=== PATIENT | male | born 1970 | race African-American/Black ===

== ENCOUNTER 2022-06-18 16:17 | Inpatient (IN) | payer OTHER ==
[2022-06-18] MEDS: MELATONIN 5 MG TABLETS PO SCH (11:35)
[2022-06-18] MEDS: THIAMINE HCL 100 MG TABLET (FP) PO SCH (11:35)
[2022-06-18 18:58] VITALS: BMI 25.0
[2022-06-18] MEDS ORDERED: MAG HYDROX/AL HYDROX/SIMETH 30 ML UNIT-DOSE CUP PO PRN (19:23)
[2022-06-18] MEDS ORDERED: MAGNESIUM HYDROX 2400MG/30ML ORAL SUSPENSION 30 ML CUP PO PRN (19:23)
[2022-06-18] MEDS ORDERED: LOPERAMIDE HCL 2 MG CAPSULE PO PRN (19:23)
[2022-06-18] MEDS ORDERED: BISMUTH SUBSALICYLATE 524 MG/30 ML PO PRN (19:23)
[2022-06-18] MEDS ORDERED: ONDANSETRON *ODT* 4 MG TABLET SL PRN (19:23)
[2022-06-18] MEDS ORDERED: NALOXONE HCL (KLOXXADO) 8 MG SPRAY NS PRN (19:23)
[2022-06-18] MEDS ORDERED: DICYCLOMINE HCL 10 MG CAPSULE PO PRN (19:23)
[2022-06-18] MEDS ORDERED: POLYETHYLENE GLYCOL (HEALTHYLAX) 3350 17 GM PACKET PO PRN (19:23)
[2022-06-18] MEDS ORDERED: BENZOCAINE/MENTHOL (CHLORASEPTIC ) LOZENGE MM PRN (19:23)
[2022-06-18] MEDS ORDERED: ACETAMINOPHEN 325 MG TABLET (FP) PO PRN ×2 (19:23)
[2022-06-18] MEDS ORDERED: IBUPROFEN 600 MG TABLET (FP) PO PRN (19:23)
[2022-06-18] MEDS ORDERED: IBUPROFEN 400 MG TABLET (FP) PO PRN (19:23)
[2022-06-18] MEDS ORDERED: hydrOXYzine PAMOATE 25 MG CAPSULE (FP) PO PRN (19:23)
[2022-06-19] MEDS: PRENATAL VITAMINS W/ FOLIC ACID TABLET (FP) PO SCH (11:47)
[2022-06-19 12:22] LABS: HEMATOCRIT 37.3 % (35.4-49); MCHC 32.3 g/dl (32.0-35.9); MEAN CELL VOLUME 89.9 fl (80-96); MEAN PLT VOLUME 10.5 fl (7.5-11.1); PLATELET COUNT 204 10^3/uL (134-434); RBC 4.14 M/mm3 (4.00-5.60); RDW 16.5 % (11.9-15.9)
[2022-06-19 12:41] LABS: CALCIUM 8.3 mg/dL (8.5-10.1)
[2022-06-19 12:42] LABS: ALBUMIN 2.7 g/dl (3.4-5.0)
[2022-06-19] MEDS ORDERED: cloNIDine HCL 0.1 MG TABLET PO ONE ×2 (12:42→21:24)
[2022-06-19 12:45] LABS: BILIRUBIN,TOTAL 0.5 mg/dL (0.2-1); TOT PROT 5.8 g/dl (6.4-8.2)
[2022-06-19 12:47] LABS: CREATININE 0.6 mg/dL (0.55-1.3)
[2022-06-19] MEDS ORDERED: TRIMETHOBENZAMIDE HCL 200MG/2ML INJ IM ONE (15:21)
[2022-06-19] MEDS: METHOCARBAMOL 500 MG TABLET PO PRN (18:06)
[2022-06-19] MEDS: cloNIDine HCL 0.1 MG TABLET PO PRN (18:06)
[2022-06-19] MEDS: THIAMINE HCL 100 MG TABLET (FP) PO SCH (23:05)
[2022-06-19] MEDS: MELATONIN 5 MG TABLETS PO SCH (23:05)
[2022-06-20] MEDS: cloNIDine HCL 0.1 MG TABLET PO PRN ×3 (06:19→22:29)
[2022-06-20] MEDS: PRENATAL VITAMINS W/ FOLIC ACID TABLET (FP) PO SCH (10:21)
[2022-06-20] MEDS: NICOTINE 10 MG CARTRIDGE (INHALER) IH PRN (12:35)
[2022-06-20] MEDS: MELATONIN 5 MG TABLETS PO SCH (22:29)
[2022-06-20] MEDS: THIAMINE HCL 100 MG TABLET (FP) PO SCH (22:29)
[2022-06-20] MEDS: METHOCARBAMOL 500 MG TABLET PO PRN (22:29)
[2022-06-21] MEDS: cloNIDine HCL 0.1 MG TABLET PO PRN (05:12)
[2022-06-21] MEDS ORDERED: methaDONE HCL 10 MG TABLET (FOR DETOX USE ONLY) PO ONE (10:00)
[2022-06-21] MEDS: METHOCARBAMOL 500 MG TABLET PO PRN (10:34)
[2022-06-21] MEDS: PRENATAL VITAMINS W/ FOLIC ACID TABLET (FP) PO SCH (10:34)
[2022-06-21] MEDS: diazePAM 5 MG TABLET PO PRN ×2 (17:23→22:31)
[2022-06-21] MEDS: NICOTINE 10 MG CARTRIDGE (INHALER) IH PRN (17:23)
[2022-06-21] MEDS: MELATONIN 5 MG TABLETS PO SCH (22:31)
[2022-06-21] MEDS: THIAMINE HCL 100 MG TABLET (FP) PO SCH (22:32)
[2022-06-22] MEDS: diazePAM 5 MG TABLET PO PRN ×2 (06:51→12:42)
[2022-06-22] MEDS: METHOCARBAMOL 500 MG TABLET PO PRN (10:45)
[2022-06-22] MEDS: PRENATAL VITAMINS W/ FOLIC ACID TABLET (FP) PO SCH (10:45)
[2022-06-22] MEDS: cloNIDine HCL 0.1 MG TABLET PO PRN (10:45)
[2022-06-22 12:51] VITALS: RESP 18
[2022-06-22] MEDS: THIAMINE HCL 100 MG TABLET (FP) PO SCH (22:00)
[2022-06-22] MEDS: MELATONIN 5 MG TABLETS PO SCH (22:00)
[2022-06-23] MEDS: cloNIDine HCL 0.1 MG TABLET PO PRN (06:27)
[2022-06-23 09:51] VITALS: BP 147/96; PULSE 91; TEMP 97.3
[2022-06-23] MEDS ORDERED: methaDONE HCL 10 MG TABLET (FOR DETOX USE ONLY) PO ONE (10:00)
[2022-06-23] MEDS: PRENATAL VITAMINS W/ FOLIC ACID TABLET (FP) PO SCH (10:05)
[2022-06-23] MEDS: METHOCARBAMOL 500 MG TABLET PO PRN (10:05)
== END 2022-06-23 13:13 | disposition home or self-care (01) | DRG 773 ==
LOC: YASAS 16:17 → Y6N 20:38
PROVIDERS: ADMIT Allergy & Immunology; ATTEND Surgery
PROC: HZ2ZZZZ Detoxification Services for Substance Abuse Treatment (ICD-10-PCS; principal; 2022-06-18)
DX: F11.23 Opioid dependence with withdrawal (principal); F10.230 Alcohol dependence with withdrawal, uncomplicated; F14.20 Cocaine dependence, uncomplicated; F12.20 Cannabis dependence, uncomplicated; F17.210 Nicotine dependence, cigarettes, uncomplicated; I10 Essential (primary) hypertension; Z91.013 Allergy to seafood; Z59.00 Homelessness unspecified
CPT/HCPCS: 36415; 80053; 85027; 86780; 93005; 93010; C9803-CS; Q0162; U0003; U0005

== ENCOUNTER 2024-03-07 17:24 | Inpatient (IN) | payer OTHER ==
[2024-03-07 18:18] VITALS: BMI 23.5
[2024-03-07] MEDS ORDERED: LOPERAMIDE HCL 2 MG CAPSULE PO PRN (19:16)
[2024-03-07] MEDS ORDERED: IBUPROFEN 600 MG TABLET (FP) PO PRN (19:16)
[2024-03-07] MEDS ORDERED: ONDANSETRON *ODT* 4 MG TABLET SL PRN (19:16)
[2024-03-07] MEDS ORDERED: NALOXONE (NARCAN) HCL 4 MG/0.1 ML SPRAY NS PRN (19:16)
[2024-03-07] MEDS ORDERED: BENZOCAINE/MENTHOL (CHLORASEPTIC ) LOZENGE MM PRN (19:16)
[2024-03-07] MEDS ORDERED: DICYCLOMINE HCL 10 MG CAPSULE PO PRN (19:16)
[2024-03-07] MEDS ORDERED: guaiFENesin 600 MG TABLET.ER (FP) PO PRN (19:16)
[2024-03-07] MEDS ORDERED: MAGNESIUM HYDROX 2400MG/30ML ORAL SUSPENSION 30 ML CUP PO PRN (19:16)
[2024-03-07] MEDS ORDERED: MAG HYDROX/AL HYDROX/SIMETH 30 ML UNIT-DOSE CUP PO PRN (19:16)
[2024-03-07] MEDS ORDERED: ACETAMINOPHEN 325 MG TABLET (FP) PO PRN (19:16)
[2024-03-07] MEDS ORDERED: IBUPROFEN 400 MG TABLET (FP) PO PRN (19:16)
[2024-03-07] MEDS ORDERED: NALOXONE HCL 0.4 MG/ML VIAL IM PRN (19:16)
[2024-03-07] MEDS ORDERED: BISMUTH SUBSALICYLATE 524 MG/30 ML PO PRN (19:16)
[2024-03-07] MEDS ORDERED: POLYETHYLENE GLYCOL (HEALTHYLAX) 3350 17 GM PACKET PO PRN (19:16)
[2024-03-07] MEDS ORDERED: BENZONATATE 200 MG CAPSULE PO PRN (19:16)
[2024-03-07] MEDS ORDERED: methaDONE HCL 10 MG TABLET (FOR DETOX USE ONLY) ONE (20:15)
[2024-03-07] MEDS: methaDONE HCL 10 MG TABLET (FOR DETOX USE ONLY) PO ONE (20:19)
[2024-03-07] MEDS: MELATONIN 5 MG TABLETS PO SCH (22:06)
[2024-03-07] MEDS: THIAMINE 100 MG TABLET PO SCH (22:09)
[2024-03-08] MEDS: PRENATAL VITAMINS W/ FOLIC ACID TABLET (FP) PO SCH (09:32)
[2024-03-08 10:22] LABS: CHLORIDE 106 mmol/L (98-107); POTASSIUM 3.1 mmol/L (3.5-5.1); SODIUM 141 mmol/L (136-145)
[2024-03-08 10:24] LABS: HEMATOCRIT 37.9 % (35.4-49); HEMOGLOBIN 12.9 GM/dL (11.7-16.9); MCH 30.9 pg (25.7-33.7); MCHC 34.2 g/dl (32.0-35.9); MEAN CELL VOLUME 90.5 fl (80-96); MEAN PLT VOLUME 9.7 fl (7.5-11.1); PLATELET COUNT 147 10^3/uL (134-434); RBC 4.18 M/mm3 (4.00-5.60); RDW 15.2 % (11.9-15.9); WHITE BLOOD COUNT 8.1 K/mm3 (4.0-10.0)
[2024-03-08 10:27] LABS: CALCIUM 8.5 mg/dL (8.5-10.1)
[2024-03-08 10:28] LABS: ALBUMIN 3.2 g/dl (3.4-5.0); ANION GAP 6 mmol/L (4-13); BLOOD UREA NITROGEN 21.4 mg/dL (7-18); CO2 28 mmol/L (21-32); GLUCOSE,RANDOM 80 mg/dL (74-106)
[2024-03-08 10:30] LABS: SGPT/ALT 44 U/L (13-61)
[2024-03-08 10:31] LABS: CREATININE 0.8 mg/dL (0.55-1.3); SGOT/AST 35 U/L (15-37)
[2024-03-08 10:32] LABS: BILIRUBIN,TOTAL 0.4 mg/dL (0.2-1); TOT PROT 6.2 g/dl (6.4-8.2)
[2024-03-08 10:33] LABS: ALK PHOS 77 U/L (45-117)
[2024-03-08] MEDS: cloNIDine HCL 0.1 MG TABLET PO PRN (13:19)
[2024-03-08] MEDS: POTASSIUM CHLORIDE ORAL LIQUID 20 MEQ/15 ML PO ONE (18:04)
[2024-03-08] MEDS: POTASSIUM CHLORIDE ORAL LIQUID 20 MEQ/15 ML PO SCH (22:24)
[2024-03-09 01:22] LABS: PH,URINE 7.5 (5.0-8.0); URINE APPEARANCE CLEAR; URINE BILIRUBIN NEGATIVE (NEGATIVE); URINE COLOR YELLOW; URINE GLUCOSE (UA) NEGATIVE (NEGATIVE); URINE KETONE NEGATIVE (NEGATIVE); URINE LEUK ESTERASE NEGATIVE (NEGATIVE); URINE NITRITE NEGATIVE (NEGATIVE); URINE PROTEIN NEGATIVE (NEGATIVE)
[2024-03-09] MEDS: methaDONE HCL 10 MG TABLET (FOR DETOX USE ONLY) PO ONE (10:11)
[2024-03-09] MEDS: METHOCARBAMOL 500 MG TABLET PO PRN (10:12)
[2024-03-09] MEDS: hydrOXYzine PAMOATE 25 MG CAPSULE (FP) PO PRN (10:12)
[2024-03-09 11:23] LABS: CALCIUM 8.7 mg/dL (8.5-10.1); POTASSIUM 3.9 mmol/L (3.5-5.1)
[2024-03-09 11:24] LABS: BLOOD UREA NITROGEN 16.4 mg/dL (7-18)
[2024-03-09 11:27] LABS: CREATININE 0.8 mg/dL (0.55-1.3)
[2024-03-10] MEDS: amLODIPine BESYLATE 2.5 MG TABLET (FP) PO SCH (10:40)
[2024-03-10] MEDS: CEPHALEXIN MONOHYDRATE 500 MG CAPSULE (UD) PO SCH (15:12)
[2024-03-11] MEDS: methaDONE HCL 10 MG TABLET (FOR DETOX USE ONLY) PO ONE (10:06)
[2024-03-11] MEDS: amLODIPine BESYLATE 5 MG TABLET (FP) PO ONE (17:35)
[2024-03-11] MEDS: SULFAMETHOXAZOLE/TRIMETHOPRIM 800MG/160MG D.S. TABLET PO SCH (22:18)
[2024-03-12 06:26] VITALS: RESP 16
[2024-03-12 09:38] VITALS: BP 143/75; PULSE 63; TEMP 98
== END 2024-03-12 09:52 | disposition home or self-care (01) | DRG 773 ==
LOC: SUATTDRO 17:24 → YASAS 17:24 → Y3N 21:11
PROVIDERS: ADMIT Allergy & Immunology; ATTEND Surgery
PROC: HZ2ZZZZ Detoxification Services for Substance Abuse Treatment (ICD-10-PCS; principal; 2024-03-07)
DX: F11.23 Opioid dependence with withdrawal (principal); F14.20 Cocaine dependence, uncomplicated; F17.210 Nicotine dependence, cigarettes, uncomplicated; I10 Essential (primary) hypertension; L02.511 Cutaneous abscess of right hand; E86.0 Dehydration; E87.6 Hypokalemia; Z91.013 Allergy to seafood; Z56.0 Unemployment, unspecified; Z59.00 Homelessness unspecified
CPT/HCPCS: 36415; 80048; 80053; 80305; 80307; 81003; 85027; 86780; 93005; 93010

== ENCOUNTER 2024-03-11 11:16 | Emergency (ER) | payer OTHER ==
[2024-03-11 12:25] VITALS: BP 155/53; PULSE 56; RESP 18; TEMP 98.6; BMI 23.5
== END 2024-03-11 14:51 | disposition home or self-care (01) ==
LOC: JER 11:16
PROC: 0H9FXZZ Drainage of Right Hand Skin, External Approach (ICD-10-PCS; principal; 2024-03-11)
DX: L02.511 Cutaneous abscess of right hand (principal); L08.9 Local infection of the skin and subcutaneous tissue, unspecified
CPT/HCPCS: 73130-TC-RT-FY; 99283-25